=== PATIENT | male | born 1965 | race Two or more races ===

== ENCOUNTER 2023-08-26 11:21 | Day surgery (SDC) | payer OTHER ==
[2023-08-23 10:11] LABS: HEMATOCRIT 47.9 % (39.0-48.0); HEMOGLOBIN 15.1 g/dL (13-16.00); MEAN CELL VOLUME 77.9 fL (80.0-100.00); MEAN CORPUSCULAR HEMOGLOBIN 24.6 pg (27.00-32.0); MEAN CORPUSCULAR HGB CONC 31.6 g/dl (32.0-36.0); PLATELET COUNT 350 K/uL (150-450); RED BLOOD COUNT 6.15 M/uL (4.00-6.00); RED CELL DISTRIBUTION WIDTH 15.4 % (11.5-14.5)
[2023-08-23 10:19] LABS: URINE APPEARANCE Clear; URINE BILIRRUBIN Negative (NEGATIVE); URINE BLOOD Trace; URINE COLOR Yellow; URINE GLUCOSE Negative (NEGATIVE); URINE LEUKOCYTE Negative; URINE NITRATE Negative; URINE PROTEIN Negative (NEGATIVE); URINE UROBILINOGEN 0.2 E.U./dl
[2023-08-23 10:23] LABS: URINE BACTERIA 15.1 uL (0.0-1933); URINE EPITHELIAL CELLS 1.6 uL (0.0-38.8); URINE RBC 6.8 uL (0.0-20.8); URINE WBC 2.7 uL (0.0-23.2)
[2023-08-23 10:58] LABS: INR 1.07; PARTIAL THROMBOPLASTIN TIME 24.4 SECONDS (22.0-34.0); PROTHROMBIN TIME 11.2 SECONDS (9.0-11.5)
[2023-08-23 11:06] LABS: ALBUMIN 4.2 gm/dL (3.4-5.0); BILIRUBIN TOTAL 0.88 mg/dL (0.3-1.2); CALCIUM 9.1 mg/dL (8.5-10.1); CREATININE SERUM 1.26 mg/dL (0.70-1.30); GFR 58.58; GLOBULINA 3.7 G/DL (2.4-3.5); POTASSIUM 4.33 mEq/L (3.5-5.1); TOTAL PROTEIN 7.9 gm/dL (6.4-8.2)
[~2023-08-26 11:21] MED LIST: AMITRIPTYLINE H25 MG PO; BUPROPION 300 MG; CLONAZEPAM1 MG; DIVALPROEX SOD500 MG; DOXEPIN 50 MG; GABAPENTIN800 M1; QUETIAPINE FUMARATE; ZOLPIDEM 10MG
[2023-08-26] MEDS ORDERED: CEFAZOLIN SODIUM 1,000 MG VIAL ONE (13:51)
[2023-08-26] MEDS ORDERED: KETOROLAC TROMETHAMINE 30 MG VIAL ONE (13:56)
[2023-08-26] MEDS ORDERED: LIDOCAINE HCL 1%/EPINEPHRINE 20ML VIAL IJ ONE ×2 (13:56→14:45)
[2023-08-26] MEDS ORDERED: KETOROLAC TROMETHAMINE 30 MG VIAL IV ONE (14:45)
[2023-08-26] MEDS ORDERED: CEFAZOLIN SODIUM 1,000 MG VIAL IV ONE (14:45)
[2023-08-26] MEDS ORDERED: KETOROLAC TROMETHAMINE 30 MG VIAL IJ ONE (14:45)
[2023-08-26] MEDS ORDERED: SUGAMMADEX SODIUM 200 MG/2 ML VIAL IV ONE ×2 (14:45→14:58)
[2023-08-26] MEDS ORDERED: ONDANSETRON HCL 2 MG/ML VIAL ONE (17:08)
== END 2023-08-26 18:15 | disposition home or self-care (01) ==
LOC: CIR.AMB 11:21
PROVIDERS: ATTEND Orthopaedic Surgery
DX: S46.211A Strain of muscle, fascia and tendon of other parts of biceps, right arm, initial encounter (principal)